=== PATIENT | female | born 1965 | race Caucasian/White ===

== ENCOUNTER 2024-04-03 23:30 | Inpatient (IN) | payer SELFPAY ==
[2024-04-04] MEDS ORDERED: Sodium Chloride 0.9% 100 ML ONE (00:09)
[2024-04-04] MEDS ORDERED: Azithromycin 500 MG VIAL ONE (00:09)
[2024-04-04] MEDS ORDERED: cefTRIAXone (ROCEPHIN) 2 GM VIAL ONE (00:09)
[2024-04-04 00:35] LABS: Anion Gap 13 mmol/L (10-20); BUN (Urea Nitrogen) 44 mg/dL (9.8-20.1); Calc. Creatinine Clearance 0 mL/min (70-130); Calcium 6.8 mg/dL (7.8-10.44); Carbon Dioxide 11 mmol/L (22-29); Chloride 111 mmol/L (98-107); Estimated GFR 28; Glucose 263 mg/dL (70-105); Sodium 132 mmol/L (136-145)
[2024-04-04 00:40] LABS: Troponin I 0.216 ng/mL (< 0.028)
[2024-04-04] MEDS ORDERED: Sodium Bicarb 50 MEQ/50 ML Abboject 8.4% SYRINGE ONE (00:44)
[2024-04-04 01:01] LABS: Analyzer IN Cardio ER; Base Excess -11.9 mEq/L (-2.0 to +3.0); Calcium, Ionized (venous) 1.01 mmol/L (1.16-1.32); Chloride (VBG) 110 mmol/L (98-106); Hematocrit-VBG 32 % (36.0-47.0); Hemoglobin (Hb) 10.8 g/dL (11.7-16.0); Sodium 134 mmol/L (133-146); pH (venous) 7.264 (7.32-7.43)
[2024-04-04] MEDS ORDERED: INSULIN REGULAR IN 0.9 % NACL 100 ML ONE (01:24)
[2024-04-04] MEDS ORDERED: Ondansetron PF 4 MG/2 ML Vial IVP PRN (01:36)
[2024-04-04] MEDS ORDERED: Senokot S 8.6-50 MG TAB PO PRN (01:36)
[2024-04-04] MEDS ORDERED: Calcium Carbonate 500 MG ChewTAB PO PRN (01:36)
[2024-04-04] MEDS ORDERED: Aspirin Chewable 81 MG TAB ONE (01:37)
[2024-04-04] MEDS ORDERED: dilTIAZem 125 MG in Sodium Chloride 0.9% 100 ML IVPB SCH (01:45)
[2024-04-04] MEDS ORDERED: Diltiazem HCl/D5W 125 MG in Premix 1 BAG IVPB SCH (02:00)
[2024-04-04 02:28] LABS: Anion Gap 15 mmol/L (10-20); BUN (Urea Nitrogen) 48 mg/dL (9.8-20.1); Calc. Creatinine Clearance 28 mL/min (70-130); Calcium 7.3 mg/dL (7.8-10.44); Carbon Dioxide 15 mmol/L (22-29); Chloride 107 mmol/L (98-107); Estimated GFR 25; Glucose 239 mg/dL (70-105); Potassium 3.3 mmol/L (3.5-5.1); Sodium 134 mmol/L (136-145)
[2024-04-04] MEDS ORDERED: Sodium Chloride 0.9% 1,000 ML IV PRN ×8 (03:00→06:41)
[2024-04-04] MEDS ORDERED: Glucagon 1 MG/ML KIT IM PRN ×2 (03:00→07:00)
[2024-04-04] MEDS ORDERED: Dextrose 5 %-0.45 % NaCl 1,000 ML IV PRN (03:00)
[2024-04-04] MEDS ORDERED: NS 0.9% w/ 20 MEQ KCL 1,000 ML/1,000 ML BAG IV PRN ×2 (03:00)
[2024-04-04] MEDS ORDERED: Dextrose 5% in Water 1,000 ML IV PRN ×2 (03:00→07:00)
[2024-04-04] MEDS ORDERED: Insulin Reg, Human 100 UNITS in Sodium Chloride 0.9% 100 ML IVPB SCH (03:00)
[2024-04-04] MEDS ORDERED: ADD ELECTROLYTE REPLACEMENT SET TO PROFILE FS SCH (03:00)
[2024-04-04] MEDS ORDERED: Electrolyte Replacement Protocol FS PRN ×2 (03:00→07:00)
[2024-04-04] MEDS ORDERED: D5 1/2 NS w/20 mEq KCL 1,000 ML ONE ×3 (03:43→12:40)
[2024-04-04] MEDS: D5 1/2 NS w/20 mEq KCL 1,000 ML IV PRN ×2 (03:45→08:36)
[2024-04-04] MEDS: Potassium Chloride 10 MEQ in Premix 1 BAG IVPB SCH (03:58)
[2024-04-04 05:01] LABS: #Basophils Less than 0.03 10x3/uL (0.0-0.2); #Eosinophils Less than 0.03 10x3/uL (0.0-0.7); %Basophils 0.3 % (0.0-1.0); %Lymphocytes 20.8 % (21.0-51.0); %Monocytes 5.9 % (0.0-10.0); %Neutrophils 72.7 % (42.0-75.0); Hematocrit 29.2 % (36.0-47.0); Hemoglobin 9.5 g/dL (12.0-16.0); Mean Corpuscular HGB CONC 32.5 g/dL (32.0-36.0); Mean Corpuscular Hemoglobin 30.1 pg (27.0-31.0); Mean Corpuscular Volume 92.4 fL (78.0-98.0); Mean Platelet Volume 9.5 fL (7.4-10.4); Platelet Count 195 10x3/uL (130-400); RBC Distribution Width 14.1 % (11.5-14.5); Red Blood Cell (RBC) Count 3.16 mill/uL (4.20-5.40)
[2024-04-04 05:41] LABS: A1c 149.21 g/dL; Hb (HGBA1c) 2404.3978 umol/L; Hemoglobin A1c 7.8 % (4.0-6.0)
[2024-04-04] MEDS ORDERED: Dextrose 10% in Water 250 ML ONE (05:41)
[2024-04-04] MEDS: Dextrose 50% Abboject 50 ML SYRINGE SLOW IVP PRN ×2 (05:45→09:12)
[2024-04-04 05:53] LABS: Critical Call Chem Troponin I RESULT DECREASING; Troponin I 0.205 ng/mL (< 0.028)
[2024-04-04 06:00] LABS: ALT (SGPT) 11 U/L (8-55); AST (SGOT) 32 U/L (5-34); Albumin 1.8 g/dL (3.5-5.0); Alkaline Phosphatase 87 U/L (40-110); Anion Gap 12 mmol/L (10-20); BUN (Urea Nitrogen) 45 mg/dL (9.8-20.1); Bilirubin, Total 0.1 mg/dL (0.2-1.2); Calc. Creatinine Clearance 30 mL/min (70-130); Calcium 7.5 mg/dL (7.8-10.44); Carbon Dioxide 15 mmol/L (22-29); Cardiac Risk 14.1 (Less than 4.5); Chloride 111 mmol/L (98-107); Cholesterol 155 mg/dl (< 200 Desired); Estimated GFR 27; Globulin 3.4 g/dL (2.4-3.5); Glucose 147 mg/dL (70-105); HDL Cholesterol 11 mg/dL (>60 Neg Risk); Potassium 3.5 mmol/L (3.5-5.1); Protein, Total 5.2 g/dL (6.0-8.3); Sodium 134 mmol/L (136-145); Triglycerides 413 mg/dL (Less than 150)
[2024-04-04] MEDS ORDERED: NS 0.9% w/ 20 MEQ KCL 1,000 ML IV PRN ×2 (06:41)
[2024-04-04] MEDS ORDERED: INSULIN REGULAR IN 0.9 % NACL 100 ML IVPB SCH (06:45)
[2024-04-04] MEDS: NS 0.9% w/ 20 MEQ KCL 1,000 ML/1,000 ML BAG IV SCH (07:11)
[2024-04-04 07:33] LABS: Anion Gap 13 mmol/L (10-20); BUN (Urea Nitrogen) 44 mg/dL (9.8-20.1); Calc. Creatinine Clearance 30 mL/min (70-130); Calcium 7.1 mg/dL (7.8-10.44); Carbon Dioxide 15 mmol/L (22-29); Chloride 111 mmol/L (98-107); Estimated GFR 27; Glucose 155 mg/dL (70-105); Potassium 3.7 mmol/L (3.5-5.1); Sodium 135 mmol/L (136-145)
[2024-04-04] MEDS ORDERED: Amlodipine 5 MG TAB ONE (08:22)
[2024-04-04] MEDS ORDERED: guaiFENesin ER 600 MG TAB ONE (08:22)
[2024-04-04] MEDS: Dextrose 5 %-0.45 % NaCl 1,000 ML IV PRN (08:34)
[2024-04-04] MEDS: Amlodipine 5 MG TAB PO SCH (09:04)
[2024-04-04] MEDS: Venlafaxine 75 MG TAB PO SCH (09:05)
[2024-04-04] MEDS: guaiFENesin ER 600 MG TAB PO SCH (09:05)
[2024-04-04] MEDS: Atenolol 25 MG TAB PO SCH (09:05)
[2024-04-04 10:40] LABS: Bacteria/HPF None Seen HPF (None Seen); Bilirubin Negative (Negative); Blood, Urine 1+ (Negative); CAUTI Indications for Culture Alt mental st,lethar; Clarity Turbid (Clear); Glucose, Urine (Dipstick) 50 mg/dL (Negative); Ketone, Urine Negative (Negative); Leukocyte Negative Leu/uL (Negative); Nitrite Negative (Negative); Protein, Urine (Dipstick) 300 mg/dL (Neg-Trace); RBC/HPF None Seen HPF (0-3); Squamous Epithelial 0-3 HPF (0-3); Urobilinogen Normal mg/dL (Less than 2); WBC/HPF None Seen HPF (0-3)
[2024-04-04 10:43] LABS: Urine Culture Reflex No No
[2024-04-04 10:51] LABS: Legionella Urinary Ag Negative (Negative)
[2024-04-04 10:52] LABS: Strep pneumo Urine Ag NEGATIVE (NEGATIVE)
[2024-04-04] MEDS ORDERED: Nitroglycerin 0.4 MG TAB (25 Tab Bottle) SL PRN (11:57)
[2024-04-04 12:07] LABS: Anion Gap 9 mmol/L (10-20); BUN (Urea Nitrogen) 45 mg/dL (9.8-20.1); Calc. Creatinine Clearance 28 mL/min (70-130); Calcium 7.1 mg/dL (7.8-10.44); Carbon Dioxide 15 mmol/L (22-29); Chloride 110 mmol/L (98-107); Estimated GFR 25; Glucose 176 mg/dL (70-105); Sodium 130 mmol/L (136-145)
[2024-04-04] MEDS ORDERED: Pantoprazole 40 MG VIAL ONE (12:12)
[2024-04-04] MEDS ORDERED: Insulin Glargine 30 UNITS/0.3 ML VIAL ONE (12:12)
[2024-04-04 12:27] LABS: Hematocrit 29.8 % (36.0-47.0); Hemoglobin 9.5 g/dL (12.0-16.0); Platelet Count 188 10x3/uL (130-400)
[2024-04-04] MEDS: Insulin Glargine 30 UNITS/0.3 ML VIAL SC SCH (12:29)
[2024-04-04] MEDS: Pantoprazole 40 MG VIAL IVP SCH (12:29)
[2024-04-04 12:50] LABS: Troponin I 0.193 ng/mL (< 0.028)
[2024-04-04 14:53] VITALS: BMI 27.3
[2024-04-04 16:58] LABS: Troponin I 0.206 ng/mL (< 0.028)
[2024-04-04 17:59] LABS: Hematocrit 32.2 % (36.0-47.0); Hemoglobin 10.1 g/dL (12.0-16.0); Platelet Count 186 10x3/uL (130-400)
[2024-04-04] MEDS: cefTRIAXone\\ROCEPHIN 2 GM in Sodium Chloride 0.9% 100 ML IVPB SCH (19:17)
[2024-04-04 20:41] LABS: Amphetamine Not Detected (NotDetected); Barbiturates Screen Not Detected (NotDetected); Benzodiazepine Screen Not Detected (NotDetected); Cocaine Metabolite Screen Not Detected (NotDetected); Methadone Not Detected (NotDetected); Methamphetamine Not Detected (NotDetected); Opiate Screen Detected (NotDetected); Oxycodone Screen Not Detected (NotDetected); Phencyclidine (PCP) Not Detected (NotDetected); THC/Cannabinoid Screen Not Detected (NotDetected); Tricyclic Screen Not Detected (NotDetected)
[2024-04-04] MEDS ORDERED: cefTRIAXone\\ROCEPHIN 1 GM in Sodium Chloride 0.9% 100 ML IVPB SCH (21:00)
[2024-04-04] MEDS: Enoxaparin 60 MG (0.6 mL) SYRINGE SC SCH (21:04)
[2024-04-04] MEDS: Azithromycin 500 MG in Sodium Chloride 0.9% 250 ML 250 ML IVPB SCH (21:05)
[2024-04-05 03:24] LABS: #Basophils Less than 0.03 10x3/uL (0.0-0.2); #Eosinophils Less than 0.03 10x3/uL (0.0-0.7); %Basophils 0.2 % (0.0-1.0); %Lymphocytes 19.2 % (21.0-51.0); %Monocytes 8.2 % (0.0-10.0); %Neutrophils 71.9 % (42.0-75.0); Hematocrit 30.9 % (36.0-47.0); Hemoglobin 9.8 g/dL (12.0-16.0); Mean Corpuscular HGB CONC 31.7 g/dL (32.0-36.0); Mean Corpuscular Hemoglobin 30.7 pg (27.0-31.0); Mean Corpuscular Volume 96.9 fL (78.0-98.0); Mean Platelet Volume 9.4 fL (7.4-10.4); Platelet Count 180 10x3/uL (130-400); RBC Distribution Width 14.4 % (11.5-14.5); Red Blood Cell (RBC) Count 3.19 mill/uL (4.20-5.40)
[2024-04-05 03:50] LABS: Anion Gap 13 mmol/L (10-20); BUN (Urea Nitrogen) 39 mg/dL (9.8-20.1); Calc. Creatinine Clearance 32 mL/min (70-130); Calcium 7.5 mg/dL (7.8-10.44); Carbon Dioxide 12 mmol/L (22-29); Chloride 109 mmol/L (98-107); Estimated GFR 28; Glucose 159 mg/dL (70-105); Potassium 4.4 mmol/L (3.5-5.1); Sodium 130 mmol/L (136-145)
[2024-04-05] MEDS ORDERED: Dextrose 5% in Water 1,000 ML IV PRN (08:47)
[2024-04-05] MEDS ORDERED: Dextrose 50% Abboject 50 ML SYRINGE SLOW IVP PRN (08:47)
[2024-04-05] MEDS ORDERED: Glucagon 1 MG/ML KIT IM PRN (08:47)
[2024-04-05] MEDS ORDERED: Insulin Lispro 100 UNIT/ML 10 ML VIAL SC PRN ×2 (08:47)
[2024-04-05] MEDS ORDERED: Enoxaparin 80 MG (0.8 mL) SYRINGE SC SCH ×2 (09:00→21:00)
[2024-04-05] MEDS ORDERED: Insulin Glargine 30 UNITS/0.3 ML VIAL SC SCH (09:00)
[2024-04-05] MEDS ORDERED: Ipratropium/Albuterol 3 ML NEB NEB PRN (09:17)
[2024-04-05] MEDS ORDERED: Albuterol 200 PUFF INH INH PRN (09:40)
[2024-04-05] MEDS: Insulin Glargine 30 UNITS/0.3 ML VIAL SC SCH (09:45)
[2024-04-05] MEDS: Sodium Bicarbonate Tab 325 MG TAB PO SCH (09:49)
[2024-04-05] MEDS: Pantoprazole 40 MG VIAL IVP SCH (09:50)
[2024-04-05] MEDS: methylPREDNISolone Sod Succ 40 MG VIAL IVP SCH ×2 (10:05→10:08)
[2024-04-05] MEDS ORDERED: Regadenoson 0.4 MG/5 ML SYRINGE ONE (12:06)
[2024-04-05 17:31] LABS: Actual Bicarbonate (HCO3v) 13.9 mEq/L (22-28)
[2024-04-05] MEDS: Insulin Lispro 100 UNIT/ML 10 ML VIAL SC PRN ×2 (18:10→20:54)
[2024-04-05] MEDS: Budesonide 0.5 MG/2 ML NEB INH SCH (19:08)
[2024-04-05] MEDS: Enoxaparin 80 MG (0.8 mL) SYRINGE SC SCH (20:53)
[2024-04-06 06:41] LABS: Anion Gap 14 mmol/L (10-20); BUN (Urea Nitrogen) 36 mg/dL (9.8-20.1); Calc. Creatinine Clearance 43 mL/min (70-130); Calcium 7.7 mg/dL (7.8-10.44); Carbon Dioxide 15 mmol/L (22-29); Chloride 112 mmol/L (98-107); Estimated GFR 39; Glucose 205 mg/dL (70-105); Potassium 4.7 mmol/L (3.5-5.1); Sodium 136 mmol/L (136-145)
[2024-04-06 06:57] LABS: Hemoglobin 9.5 g/dL (12.0-16.0); Mean Corpuscular HGB CONC 31.7 g/dL (32.0-36.0); Mean Corpuscular Hemoglobin 30.2 pg (27.0-31.0); Mean Corpuscular Volume 95.2 fL (78.0-98.0); Mean Platelet Volume 9.5 fL (7.4-10.4); Platelet Count 160 10x3/uL (130-400); RBC Distribution Width 14.5 % (11.5-14.5); Red Blood Cell (RBC) Count 3.15 mill/uL (4.20-5.40)
[2024-04-06 07:40] LABS: Band 15 % (5-11); Lymphocytes 11 % (21-51); Metamyelocyte 2 % (0-0); Monocytes 9 % (0-10); Neutrophil 64 % (42-75); Platelet Adequacy Comment Platelets Normal; Polychromasia SLIGHT = 2-3 cells HPF (0-2)
[2024-04-06] MEDS: Acetaminophen 325 MG TAB PO PRN (09:46)
[2024-04-06] MEDS: Apixaban 5 MG TAB PO SCH (09:46)
[2024-04-06] MEDS: Pantoprazole DR 40 MG TAB PO SCH (09:47)
[2024-04-06] MEDS: Ipratropium/Albuterol 3 ML NEB NEB SCH (11:37)
[2024-04-06] MEDS: Insulin NPH Human Isophane 100 UNITS/ML (10 ML VIAL) SC SCH (13:01)
[2024-04-07 04:18] LABS: #Basophils Less than 0.03 10x3/uL (0.0-0.2); #Eosinophils Less than 0.03 10x3/uL (0.0-0.7); %Lymphocytes 21.9 % (21.0-51.0); %Neutrophils 58.1 % (42.0-75.0); Hematocrit 28.5 % (36.0-47.0); Hemoglobin 9.4 g/dL (12.0-16.0); Mean Corpuscular Hemoglobin 30.3 pg (27.0-31.0); Mean Corpuscular Volume 91.9 fL (78.0-98.0); Mean Platelet Volume 9.2 fL (7.4-10.4); Platelet Count 170 10x3/uL (130-400); RBC Distribution Width 14.1 % (11.5-14.5)
[2024-04-07 04:32] LABS: Anion Gap 13 mmol/L (10-20); BUN (Urea Nitrogen) 32 mg/dL (9.8-20.1); Calc. Creatinine Clearance 42 mL/min (70-130); Carbon Dioxide 16 mmol/L (22-29); Chloride 111 mmol/L (98-107); Estimated GFR 38; Glucose 253 mg/dL (70-105); Potassium 3.9 mmol/L (3.5-5.1); Sodium 136 mmol/L (136-145)
[2024-04-07] MEDS ORDERED: PROPOFOL 20 ML ONE (08:24)
[2024-04-07] MEDS: Flecainide 50 MG TAB PO SCH (10:19)
[2024-04-07] MEDS: Atorvastatin Calcium 40 MG TAB PO SCH (10:19)
[2024-04-08] MEDS: hydrALAZINE 20 MG/ML VIAL SLOW IVP SCH (04:39)
[2024-04-08 04:51] LABS: Hematocrit 27.3 % (36.0-47.0); Hemoglobin 8.9 g/dL (12.0-16.0); Mean Corpuscular HGB CONC 32.6 g/dL (32.0-36.0); Mean Corpuscular Hemoglobin 30.4 pg (27.0-31.0); Mean Corpuscular Volume 93.2 fL (78.0-98.0); Mean Platelet Volume 9.5 fL (7.4-10.4); Platelet Count 185 10x3/uL (130-400); RBC Distribution Width 14.2 % (11.5-14.5); Red Blood Cell (RBC) Count 2.93 mill/uL (4.20-5.40)
[2024-04-08 05:18] LABS: Anion Gap 13 mmol/L (10-20); BUN (Urea Nitrogen) 34 mg/dL (9.8-20.1); Calc. Creatinine Clearance 48 mL/min (70-130); Calcium 7.8 mg/dL (7.8-10.44); Carbon Dioxide 19 mmol/L (22-29); Chloride 108 mmol/L (98-107); Estimated GFR 45; Glucose 282 mg/dL (70-105); Potassium 3.7 mmol/L (3.5-5.1); Sodium 136 mmol/L (136-145)
[2024-04-08 05:19] LABS: Band 3 % (5-11); Hypochromia SLIGHT = 6-15 cells HPF (0-5); Large Platelets 3.9 % (0-5); Lymphocytes 13 % (21-51); Monocytes 4 % (0-10); Myelocyte 1 % (0-0); Neutrophil 73 % (42-75); Nucleated RBC (Manual Ct) 2 % (0); Platelet Adequacy Comment Platelets Normal; Polychromasia SLIGHT = 2-3 cells HPF (0-2); Reactive Lymphocytes 7 % (0-10); Smudge Cells 35.3 %
[2024-04-08] MEDS: Lisinopril 10 MG TAB PO SCH (12:30)
[2024-04-08] MEDS: Hydrochlorothiazide 25 MG TAB PO SCH (12:30)
[2024-04-08] MEDS: Atorvastatin Calcium 40 MG TAB PO SCH (20:55)
[2024-04-09 04:33] LABS: Hematocrit 29.2 % (36.0-47.0); Hemoglobin 9.5 g/dL (12.0-16.0); Mean Corpuscular HGB CONC 32.5 g/dL (32.0-36.0); Mean Corpuscular Hemoglobin 30.3 pg (27.0-31.0); Mean Platelet Volume 9.4 fL (7.4-10.4); Platelet Count 224 10x3/uL (130-400); RBC Distribution Width 13.8 % (11.5-14.5); Red Blood Cell (RBC) Count 3.14 mill/uL (4.20-5.40)
[2024-04-09 04:51] LABS: Anion Gap 14 mmol/L (10-20); BUN (Urea Nitrogen) 27 mg/dL (9.8-20.1); Calc. Creatinine Clearance 56 mL/min (70-130); Calcium 7.9 mg/dL (7.8-10.44); Carbon Dioxide 22 mmol/L (22-29); Chloride 107 mmol/L (98-107); Estimated GFR 54; Glucose 135 mg/dL (70-105); Potassium 2.6 mmol/L (3.5-5.1); Sodium 140 mmol/L (136-145)
[2024-04-09 05:13] LABS: Band 4 % (5-11); Hypochromia SLIGHT = 6-15 cells HPF (0-5); Lymphocytes 24 % (21-51); Monocytes 5 % (0-10); Neutrophil 65 % (42-75); Platelet Adequacy Comment Platelets Normal; Polychromasia SLIGHT = 2-3 cells HPF (0-2); Reactive Lymphocytes 2 % (0-10)
[2024-04-09] MEDS: Potassium Chloride 20 MEQ in Premix 1 BAG IVPB SCH (06:20)
[2024-04-09] MEDS: Potassium Chloride 20 MEQ TAB PO SCH ×2 (06:21→10:28)
[2024-04-09] MEDS: Lisinopril 20 MG TAB PO SCH (08:53)
[2024-04-09] MEDS: Hydrochlorothiazide 25 MG TAB PO SCH (08:53)
[2024-04-09] MEDS: predniSONE 50 MG TAB PO SCH (08:53)
[2024-04-09] MEDS: Venlafaxine 75 MG TAB PO SCH (08:54)
[2024-04-09] MEDS ORDERED: Lisinopril 10 MG TAB PO SCH (09:00)
[2024-04-09 11:06] LABS: Potassium 3.6 mmol/L (3.5-5.1)
[2024-04-09 17:23] VITALS: BP 146/76; TEMP 98.1
== END 2024-04-09 17:15 | disposition home or self-care (01) | DRG 871 ==
LOC: ERS 23:30 → ERHOLD 04-04 01:36 → IMCU/EMU 04-04 01:37 → 2NO 04-06 20:38
PROVIDERS: ADMIT Internal Medicine; ATTEND Hospitalist
PROC: 3E03329 Introduction of Other Anti-infective into Peripheral Vein, Percutaneous Approach (ICD-10-PCS; 2024-04-04)
PROC: B245ZZ4 Ultrasonography of Left Heart, Transesophageal (ICD-10-PCS; principal; 2024-04-06)
PROC: 5A2204Z Restoration of Cardiac Rhythm, Single (ICD-10-PCS; 2024-04-07)
DX: A41.50 Gram-negative sepsis, unspecified (principal); E11.10 Type 2 diabetes mellitus with ketoacidosis without coma; I21.A1 Myocardial infarction type 2; J15.69 Pneumonia due to other Gram-negative bacteria; N17.9 Acute kidney failure, unspecified; J44.1 Chronic obstructive pulmonary disease with (acute) exacerbation; J44.0 Chronic obstructive pulmonary disease with (acute) lower respiratory infection; N18.9 Chronic kidney disease, unspecified; E78.5 Hyperlipidemia, unspecified; I48.0 Paroxysmal atrial fibrillation; N28.1 Cyst of kidney, acquired; I12.9 Hypertensive chronic kidney disease with stage 1 through stage 4 chronic kidney disease, or unspecified chronic kidney disease; Z88.0 Allergy status to penicillin; Z88.8 Allergy status to other drugs, medicaments and biological substances; Z90.710 Acquired absence of both cervix and uterus
CPT/HCPCS: 36415; 36416; 78452; 80048; 80061; 80306; 81001; 82010; 82805; 83036; 83605; 83690; 84484; 85025; 87040; 87077; 87149; 87449; 87899; 92960; 93005; 93010; 93017; 93306; 93312; 94640; 94760; 96361; 96365; 96366; 96367; 96375; A9502; J0360; J0456; J0696; J1650; J1815; J2470; J2704; J2785; J2919; J3480; J7042; J7050; J7512; J7620; J7626; J7999